=== PATIENT | female | born 1990 | race Two or more races ===

== ENCOUNTER 2023-11-26 17:29 | Emergency (ER) | payer MEDICAID, SELFPAY ==
[2023-11-26 18:09] VITALS: BP 120/79; PULSE 91; TEMP 36.3; O2SAT 99; BMI 28.3
[2023-11-26 18:56] LABS: Strep A DNA Probe* NOT DETECTED (Not Detectd)
--- NOTE | 2023-11-26 19:03 | ED_ITS ---
HPI - General Adult General Chief complaint: Nausea/Vomiting Stated complaint: weak, 7 weeks pre, vomiting Time Seen by Provider: 11/26/23 18:47 Source: patient Mode of arrival: ambulatory Limitations: no limitations History of Present Illness HPI narrative: 33-year-old female at 7 weeks gestation presents today with nausea vomiting. Patient states she has been having nausea vomiting on and off for over a week now but in the last 48 hours it has been significant and she has been able to keep anything down. She does have Zofran at home it does not seem to be working she has also tried vitamin B6 and Unisom which also is not working. She states that she had a fever today of 100.5. She denies headache, chest pain, cough, abdominal discomfort, vaginal bleeding, skin rashes. She denies any dysuria. She had 2 episodes of loose stools yesterday. No stool today. No sick contacts that she is aware of. Related Data Home Medications Medication Instructions Recorded Confirmed ondansetron 4 mg disintegrating 4 mg PO Q8H PRN nausea 11/26/23 11/26/23 tablet Previous Rx's Medication Instructions Recorded promethazine 25 mg tablet 25 mg PO TID PRN #10 tabs 11/26/23 Allergies Allergy/AdvReac Type Severity Reaction Status Date / Time No Known Drug Allergies Allergy Verified 11/26/23 18:13 Review of Systems Status of ROS: Reports: 10 or more systems reviewed and unremarkable except as noted in History and below [facility] Social History Smoking Status: Never smoker Non-prescribed substance use: denies use Exam Narrative: Exam Narrative: Well-nourished well-developed patient in no acute distress. Alert and oriented. Answers questions appropriately. Mood and affect are appropriate. Thoughts are goal oriented and rational. No tangential or magical thinking noted. Patient speaks in full sentences without needing to catch her breath. HEENT: Normocephalic atraumatic. Pupils are equally round reactive to light. Extraocular muscles are intact. Conjunctivae are moist without any icterus noted. Moist mucous membranes. Posterior pharynx is normal. Neck is soft without any lymphadenopathy or thyromegaly. No masses are appreciated. Cardiovascular: Heart is regular rate and rhythm S1 and S2 are present without any murmurs. Lungs: Clear to auscultation bilaterally no wheezes rhonchi or rales are appreciated. Patient takes deep breaths without any discomfort. Abdomen: Soft and nontender nondistended with normal bowel sounds. Extremities: Bilateral lower extremities are without edema. Skin: Well perfused without any obvious rashes. Const: Vital Signs, click to edit/add: Vital Signs - 24 hr 11/26/23 18:09 Temperature 97.4 F L Pulse Rate [Pulse Oximeter] 91 Blood Pressure [Ri ght Upper Arm] 120/79 Pulse Oximetry 99 Oxygen Delivery Me thod Room Air Course Course ED Course: IV was established and patient given a L of normal saline, IV Zofran. Triple swab was obtained - is negative. Rapid strep was negative. CBC is normal. Lactate is normal. Chemistries and LFTs are normal. Urine is concentrated with ketones and protein. No signs of infection. Patient did not have any vomiting episodes while she was here. Vital Signs Vital signs: Initial Vital Signs Temperature 97.4 F L 11/26/23 18:09 Temperature Source Temporal Artery Scan 11/26/23 18:09 Pulse Rate 91 11/26/23 18:09 Blood Pressure 120/79 11/26/23 18:09 Blood Pressure Mean 92 11/26/23 18:09 Blood Pressure Position Sitting 11/26/23 18:09 Pulse Oximetry 99 11/26/23 18:09 Oxygen Delivery Method Room Air 11/26/23 18:09 Vital Signs Temperature 97.4 F L 11/26/23 18:09 Pulse Rate 91 11/26/23 18:09 Blood Pressure 120/79 11/26/23 18:09 Pulse Oximetry 99 11/26/23 18:09 Oxygen Delivery Method Room Air 11/26/23 18:09 Temperature 97.4 F L 11/26/23 18:09 Pulse Rate 91 11/26/23 18:09 Blood Pressure 120/79 11/26/23 18:09 Pulse Oximetry 99 11/26/23 18:09 Oxygen Delivery Method Room Air 11/26/23 18:09 Medications Administered Medications: Discontinued Medications Generic Name Dose Route Start Last Admin Trade Name Freq PRN Reason Stop Dose Admin Sodium Chloride 1,000 mls @ 1,000 mls/hr 11/26/23 19:00 11/26/23 20:01 0.9 % Sodium Chloride 1000 Ml IV 11/26/23 19:59 Infused .Q1H HAY Infusion Ondansetron HCl 4 mg 11/26/23 18:57 11/26/23 19:28 Ondansetron 2 Mg/Ml Inj IVP 11/26/23 18:58 4 mg ONCE ONE Administration Medical Decision Making MDM Narrative Medical decision making narrative: Vomiting in . Will send the patient home with a few tablets of Phenergan this helps. Recommend following up with OBGYN. Fever unclear etiology. Patient remained afebrile while she was here. Lab Data Lab results reviewed: Yes I reviewed the patient's lab results Labs: Lab Results 11/26/23 11/26/23 11/26/23 Range/Units 18:17 19:15 19:15 WBC 7.72 (4.50-11.00) K/uL RBC 4.48 (4.00-5.20) m/uL Hgb 12.7 (12.0-16.0) gm/dL Hct 37.3 (33.0-51.0) % MCV 83 (80-100) fL MCH 28 (26-34) pg MCHC 34 (32-36) gm/dL RDW Coeff of Tacos 12.9 (11.5-15.5) % Plt Count 265 (140-440) K/uL Neut % (Auto) 71.4 (42.0-72.0) % Lymph % (Auto) 20.5 (20-44) % [place] % (Auto) 7.8 (0.0-11.0) % Eos % (Auto) 0.1 (0.0-7.0) % Baso % (Auto) 0.1 (0.0-3.0) % Neut # (Auto) 5.51 (1.7-7.0) K/uL Lymph # (Auto) 1.58 (0.90-2.90) K/uL [place] # (Auto) 0.60 (0.00-0.90) K/UL Eos # (Auto) 0.01 (0.00-0.50) K/uL Baso # (Auto) 0.01 (0.00-0.30) K/uL Abs Immat Gran (auto) 0.01 (0.00-0.30) K/uL Imm/Tot Granulo (auto) 0.1 % Sodium 137 (135-149) mmol/L Potassium 4.0 (3.6-5.1) mmol/L Chloride 103 (96-114) mmol/L Carbon Dioxide 21 (20-32) mmol/L Anion Gap 13 (7-15) mEq/L BUN 9 (5-24) mg/dL Creatinine 0.5 (0.5-1.5) mg/dL Estimated Creat Clear 144.00 Estimated GFR 127 ml/min Glucose 94 (60-115) mg/dL Lactate 1.2 (0.5-1.9) mmol/L Calcium 9.1 (8.4-10.6) mg/dL Total Bilirubin 0.8 Cancelled (0.1-1.5) mg/dL Direct Bilirubin 0.1 (0.0-0.5) mg/dL AST (12-35) U/L ALT (4-35) U/L Alkaline Phosphatase (40-150) U/L Total Protein (6.0-8.3) g/dL Albumin (3.3-5.0) g/dL Urine Color (Yellow) Urine Appearance (Clear) Urine pH (5.0-8.5) Ur Specific [place] (1.000-1.030) Urine Protein (Negative) Urine Glucose (UA) (Negative) Urine Ketones (Negative) Urine Blood (Negative) Urine Nitrite (Negative) Urine Bilirubin (Negative) Urine Urobilinogen (0.2-1.0) Ur Leukocyte Esterase (Negative) SARS-CoV-2 (PCR) Negative SARS-CoV-2 (Negative) Influenza Type A (PCR) Negative PCR FLU A (Negative) Influenza Type B (PCR) Negative PCR FLU B (Negative) RSV (PCR) Negative PCR RSV (Negative) Group A Strep DNA NOT DETECTED (Not Detectd) 11/26/23 11/26/23 11/26/23 Range/Units 19:15 19:15 19:15 WBC (4.50-11.00) K/uL RBC (4.00-5.20) m/uL Hgb (12.0-16.0) gm/dL Hct (33.0-51.0) % MCV (80-100) fL MCH (26-34) pg MCHC (32-36) gm/dL RDW Coeff of [place] (11.5-15.5) % Plt Count (140-440) K/uL Neut % (Auto) (42.0-72.0) % Lymph % (Auto) (20-44) % Troup % (Auto) (0.0-11.0) % Eos % (Auto) (0.0-7.0) % Baso % (Auto) (0.0-3.0) % Neut # (Auto) (1.7-7.0) K/uL Lymph # (Auto) (0.90-2.90) K/uL Troup # (Auto) (0.00-0.90) K/UL Eos # (Auto) (0.00-0.50) K/uL Baso # (Auto) (0.00-0.30) K/uL Abs Immat Gran (auto) (0.00-0.30) K/uL Imm/Tot Granulo (auto) % Sodium (135-149) mmol/L Potassium (3.6-5.1) mmol/L Chloride (96-114) mmol/L Carbon Dioxide (20-32) mmol/L Anion Gap (7-15) mEq/L BUN (5-24) mg/dL Creatinine (0.5-1.5) mg/dL Estimated Creat Clear Estimated GFR ml/min Glucose (60-115) mg/dL Lactate (0.5-1.9) mmol/L Calcium (8.4-10.6) mg/dL Total Bilirubin (0.1-1.5) mg/dL Direct Bilirubin Cancelled (0.0-0.5) mg/dL AST 18 Cancelled (12-35) U/L ALT 11 Cancelled (4-35) U/L Alkaline Phosphatase 80 (40-150) U/L Total Protein (6.0-8.3) g/dL Albumin (3.3-5.0) g/dL Urine Color (Yellow) Urine Appearance (Clear) Urine pH (5.0-8.5) Ur Specific [place] (1.000-1.030) Urine Protein (Negative) Urine Glucose (UA) (Negative) Urine Ketones (Negative) Urine Blood (Negative) Urine Nitrite (Negative) Urine Bilirubin (Negative) Urine Urobilinogen (0.2-1.0) Ur Leukocyte Esterase (Negative) SARS-CoV-2 (PCR) (Negative) Influenza Type A (PCR) (Negative) Influenza Type B (PCR) (Negative) RSV (PCR) (Negative) Group A Strep DNA (Not Detectd) 11/26/23 11/26/23 11/26/23 Range/Units 19:15 19:15 19:15 WBC (4.50-11.00) K/uL RBC (4.00-5.20) m/uL Hgb (12.0-16.0) gm/dL Hct (33.0-51.0) % MCV (80-100) fL MCH (26-34) pg MCHC (32-36) gm/dL RDW Coeff of Tacos (11.5-15.5) % Plt Count (140-440) K/uL Neut % (Auto) (42.0-72.0) % Lymph % (Auto) (20-44) % Troup % (Auto) (0.0-11.0) % Eos % (Auto) (0.0-7.0) % Baso % (Auto) (0.0-3.0) % Neut # (Auto) (1.7-7.0) K/uL Lymph # (Auto) (0.90-2.90) K/uL Troup # (Auto) (0.00-0.90) K/UL Eos # (Auto) (0.00-0.50) K/uL Baso # (Auto) (0.00-0.30) K/uL Abs Immat Gran (auto) (0.00-0.30) K/uL Imm/Tot Granulo (auto) % Sodium (135-149) mmol/L Potassium (3.6-5.1) mmol/L Chloride (96-114) mmol/L Carbon Dioxide (20-32) mmol/L Anion Gap (7-15) mEq/L BUN (5-24) mg/dL Creatinine (0.5-1.5) mg/dL Estimated Creat Clear Estimated GFR ml/min Glucose (60-115) mg/dL Lactate (0.5-1.9) mmol/L Calcium (8.4-10.6) mg/dL Total Bilirubin (0.1-1.5) mg/dL Direct Bilirubin (0.0-0.5) mg/dL AST (12-35) U/L ALT (4-35) U/L Alkaline Phosphatase Cancelled (40-150) U/L Total Protein 8.3 Cancelled (6.0-8.3) g/dL Albumin 4.5 Cancelled (3.3-5.0) g/dL Urine Color (Yellow) Urine Appearance (Clear) Urine pH (5.0-8.5) Ur Specific [place] (1.000-1.030) Urine Protein (Negative) Urine Glucose (UA) (Negative) Urine Ketones (Negative) Urine Blood (Negative) Urine Nitrite (Negative) Urine Bilirubin (Negative) Urine Urobilinogen (0.2-1.0) Ur Leukocyte Esterase (Negative) SARS-CoV-2 (PCR) (Negative) Influenza Type A (PCR) (Negative) Influenza Type B (PCR) (Negative) RSV (PCR) (Negative) Group A Strep DNA (Not Detectd) 11/26/23 Range/Units 20:00 WBC (4.50-11.00) K/uL RBC (4.00-5.20) m/uL Hgb (12.0-16.0) gm/dL Hct (33.0-51.0) % MCV (80-100) fL MCH (26-34) pg MCHC (32-36) gm/dL RDW Coeff of Tacos (11.5-15.5) % Plt Count (140-440) K/uL Neut % (Auto) (42.0-72.0) % Lymph % (Auto) (20-44) % [place]oup % (Auto) (0.0-11.0) % Eos % (Auto) (0.0-7.0) % Baso % (Auto) (0.0-3.0) % Neut # (Auto) (1.7-7.0) K/uL Lymph # (Auto) (0.90-2.90) K/uL [place]oup # (Auto) (0.00-0.90) K/UL Eos # (Auto) (0.00-0.50) K/uL Baso # (Auto) (0.00-0.30) K/uL Abs Immat Gran (auto) (0.00-0.30) K/uL Imm/Tot Granulo (auto) % Sodium (135-149) mmol/L Potassium (3.6-5.1) mmol/L Chloride (96-114) mmol/L Carbon Dioxide (20-32) mmol/L Anion Gap (7-15) mEq/L BUN (5-24) mg/dL Creatinine (0.5-1.5) mg/dL Estimated Creat Clear Estimated GFR ml/min Glucose (60-115) mg/dL Lactate (0.5-1.9) mmol/L Calcium (8.4-10.6) mg/dL Total Bilirubin (0.1-1.5) mg/dL Direct Bilirubin (0.0-0.5) mg/dL AST (12-35) U/L ALT (4-35) U/L Alkaline Phosphatase (40-150) U/L Total Protein (6.0-8.3) g/dL Albumin (3.3-5.0) g/dL Urine Color Dark yellow (Yellow) Urine Appearance Cloudy A (Clear) Urine pH 7.0 (5.0-8.5) Ur Specific [place] >= 1.030 (1.000-1.030) Urine Protein 1+ A (Negative) Urine Glucose (UA) Negative (Negative) Urine Ketones 4+ A (Negative) Urine Blood Negative (Negative) Urine Nitrite Negative (Negative) Urine Bilirubin 1+ A (Negative) Urine Urobilinogen 4.0 A (0.2-1.0) Ur Leukocyte Esterase Negative (Negative) SARS-CoV-2 (PCR) (Negative) Influenza Type A (PCR) (Negative) Influenza Type B (PCR) (Negative) RSV (PCR) (Negative) Group A Strep DNA (Not Detectd) Discharge Plan Discharge Clinical Impression: Vomiting affecting Patient Disposition: Home, Self-Care Condition: Stable Instructions: Acute Nausea and Vomiting (ED) Additional Instructions: Try to stay well hydrated by taking small sips of water very frequently throughout the day. Follow-up with OBGYN as scheduled. Prescriptions: New promethazine 25 mg tablet 25 mg PO TID PRNQty: 10 0RF Rx Instructions: Can take half to 1 tab as needed 3 times daily No Action ondansetron 4 mg tablet,disintegrating 4 mg PO Q8H PRN (Reason: nausea) Follow Up/Referrals: Provider,Not a Local [Primary Care Provider] - Stand Alone Forms: [employer] Info Instructions
[2023-11-26 19:09] LABS: PCR FLU A Negative PCR FLU A (Negative); PCR FLU B Negative PCR FLU B (Negative); PCR RSV Negative PCR RSV (Negative); SARS PCR* Negative SARS-CoV-2 (Negative)
[2023-11-26 19:21] LABS: Lactate* 1.2 mmol/L (0.5-1.9)
[2023-11-26 19:26] LABS: Basophils Absolute Auto 0.01 K/uL (0.00-0.30); Basophils Percent Auto 0.1 % (0.0-3.0); Eosinophils Absolute Auto 0.01 K/uL (0.00-0.50); Eosinophils Percent Auto 0.1 % (0.0-7.0); Hematocrit 37.3 % (33.0-51.0); Hemoglobin* 12.7 gm/dL (12.0-16.0); Immature Granulocytes Abs Auto 0.01 K/uL (0.00-0.30); Immature Granulocytes Pct Auto 0.1 %; Lymphocytes Absolute Auto 1.58 K/uL (0.90-2.90); Lymphocytes Percent Auto 20.5 % (20-44); Mean Corpuscular HGB Conc 34 gm/dL (32-36); Mean Corpuscular Hemoglobin 28 pg (26-34); Mean Corpuscular Volume 83 fL (80-100); Monocytes Percent Auto 7.8 % (0.0-11.0); Neutrophils Absolute Auto 5.51 K/uL (1.7-7.0); Neutrophils Percent Auto 71.4 % (42.0-72.0); Platelet Count* 265 K/uL (140-440); RDW Coefficient of Variation % 12.9 % (11.5-15.5); Red Blood Count 4.48 m/uL (4.00-5.20); White Blood Count* 7.72 K/uL (4.50-11.00)
[2023-11-26 19:27] LABS: Slide Review Reflex No
[2023-11-26] MEDS: ONDANSETRON 2 MG/ML inj 4 MG IVP (19:28)
[2023-11-26] MEDS: 0.9 % SODIUM CHLORIDE 1000 ml 1,000 ML IV (19:28)
[2023-11-26 19:42] LABS: Albumin* 4.5 g/dL (3.3-5.0)
[2023-11-26 19:43] LABS: Chloride* 103 mmol/L (96-114); Sodium* 137 mmol/L (135-149)
[2023-11-26 19:45] LABS: Anion Gap 13 mEq/L (7-15); Aspartate Amino Transferase* 18 U/L (12-35); Bilirubin Direct* 0.1 mg/dL (0.0-0.5); Bilirubin Total* 0.8 mg/dL (0.1-1.5); Blood Urea Nitrogen* 9 mg/dL (5-24); Carbon Dioxide* 21 mmol/L (20-32); Creatinine* 0.5 mg/dL (0.5-1.5); Estimated Glomerular Filt Rate 127 ml/min; Total Protein* 8.3 g/dL (6.0-8.3)
[2023-11-26 19:46] LABS: Alanine Aminotransferase* 11 U/L (4-35); Alkaline Phosphatase* 80 U/L (40-150); Calcium* 9.1 mg/dL (8.4-10.6); Glucose* 94 mg/dL (60-115)
[2023-11-26 20:10] LABS: Appearance Urine Cloudy (Clear); Bilirubin Urine 1+ (Negative); Blood Urine Negative (Negative); Glucose Urine Negative (Negative); Ketones Urine 4+ (Negative); Leukocyte Esterase Urine Negative (Negative); Nitrite Urine Negative (Negative); Protein Urine 1+ (Negative); Specific Gravity Urine >= 1.030 (1.000-1.030)
[2023-11-26 20:39] LABS: Color Urine Dark yellow (Yellow)
[2023-11-26 20:43] LABS: RBC Urine 0-2 (0-2); WBC Urine 0-2 (0-5)
[2023-11-26 20:44] LABS: Amorphous Sediment Urine Moderate; Bacteria Urine Moderate; Mucus Urine Few; Squamous Epithelial Cell Urine Many (None-Few)
== END 2023-11-26 20:10 | disposition home or self-care (01) ==
PROVIDERS: Emergency Provider Family Medicine
DX: R11.2 Nausea with vomiting, unspecified (principal); Z3A.01 Less than 8 weeks gestation of pregnancy
CPT/HCPCS: 36415; 80048; 80076; 81001; 83605; 85025; 87086; 87631; 87651; 96374; 99283; 99284; J2405; J7030

== ENCOUNTER 2023-12-08 11:49 | Outpatient (CLI) | payer MEDICAID, SELFPAY | END 2023-12-08 11:50 | disposition home or self-care (01) | PROVIDERS: Visit Provider Registered Nurse | DX: O20.9 Hemorrhage in early pregnancy, unspecified (principal) | CPT/HCPCS: 84702; 86900; 86901 ==

== ENCOUNTER 2023-12-14 12:17 | Outpatient (CLI) | payer MEDICAID, SELFPAY ==
[2023-12-14 22:27] LABS: Chlamydia DNA Amplified* NOT DETECTED (No Detected); GC DNA Amplified* NOT DETECTED (No Detected)
== END 2023-12-14 12:18 | disposition home or self-care (01) ==
PROVIDERS: Visit Provider Physician Assistant
DX: Z34.91 Encounter for supervision of normal pregnancy, unspecified, first trimester (principal); Z3A.10 10 weeks gestation of pregnancy
CPT/HCPCS: 87491; 87591

== ENCOUNTER 2023-12-15 12:06 | Outpatient (CLI) | payer MEDICAID, SELFPAY | END 2023-12-15 12:07 | disposition home or self-care (01) | LOC: NFLDREF 12-17 07:01 | PROVIDERS: Visit Provider Physician Assistant | DX: O26.851 Spotting complicating pregnancy, first trimester (principal); O21.0 Mild hyperemesis gravidarum; Z3A.10 10 weeks gestation of pregnancy | CPT/HCPCS: 80053; 84439; 84443; 86592; 86703; 86704; 86706; 86762; 86787; 86803; 86850; 86900; 86901; 87086; 87340 ==

== ENCOUNTER 2023-12-30 11:48 | Outpatient (CLI) | payer MEDICAID, SELFPAY | END 2023-12-30 11:49 | disposition home or self-care (01) | PROVIDERS: Visit Provider Obstetrics & Gynecology | DX: E05.90 Thyrotoxicosis, unspecified without thyrotoxic crisis or storm (principal) | CPT/HCPCS: 84439; 84443 ==

== ENCOUNTER 2024-03-01 12:09 | Outpatient (CLI) | payer MEDICAID, SELFPAY ==
--- NOTE | 2024-03-01 12:15 | CRLHL7_ITS ---
For Patients: As a result of the Century Cures Act, medical imaging exams and procedure reports are released immediately into your electronic medical record. You may view this report before your referring provider. If you have questions, please contact your health care provider. INDICATION: Evaluate anatomy. COMPARISON: 12/08/2023 TECHNIQUE: Real time forte scale imaging of the fetus was performed as well as color Doppler analysis of the umbilical vessels. FINDINGS: Sonographic imaging demonstrates a single living intrauterine gestation. Fetus demonstrates a regular cardiac rate of 142 beats per minute. Fetus has a vertex position. The placenta lies posteriorly without evidence of placenta previa. The placenta is heterogeneous. Edge of the placenta located 3.4 cm from the internal cervical os. Amniotic fluid volume appears normal. Single deepest vertical pocket: 3.4 cm. The cervix is closed and measures 3.7 cm in length. The composite ultrasound gestational age is calculated at 20 weeks 0 days with an estimated sonographic due date of 07/19/2024. The estimated weight is 313 grams which lies at the 5th %. The following biometric measurements were obtained: Biparietal diameter: 4.3 cm/19 weeks 0 days less than 3rd% Head circumference: 17.6 cm/20 weeks 1 day 10th% Abdominal circumference: 14.1 cm/19 weeks 3 days 7th% Femur length: 3.2 cm/20 weeks 1 day 15th% The HC/AC ratio measures: 1.25 range (1.08-1.25) On anatomic survey, there is a normal appearance of the cerebral ventricles, cavum septi pellucidi, cisterna magna and cerebellum. The nose, lips, and facial profile appear normal. The cervical, thoracic and lumbar spine are well visualized and appear normal. There is a normal four-chamber heart view and the left and right ventricular outflow tracts appear normal. The diaphragm and stomach appear normal. The kidneys and bladder also appear normal. There is a normal three-vessel cord and cord insertion site. The four extremities appear normal. IMPRESSION: Sonographic gestational age 20 weeks 0 days and sonographic due date of 07/19/2024. Sonographic age 1 week behind the clinical age. Estimated weight 5th percentile. Abdominal circumference 7th percentile. BPD less than 3rd percentile. Placenta is heterogeneous. Follow-up in the early 3rd trimester recommended. No intrinsic abnormalities noted on anatomic survey. Dictated by Fletcher Moon MD @ 03/02/2024 10:59:33 AM (Electronically Signed)
== END 2024-03-01 12:10 | disposition home or self-care (01) ==
LOC: US 12:09
PROVIDERS: Visit Provider Physician Assistant
DX: Z34.92 Encounter for supervision of normal pregnancy, unspecified, second trimester (principal); Z3A.20 20 weeks gestation of pregnancy
CPT/HCPCS: 76805

== ENCOUNTER 2024-03-23 10:18 | Outpatient (CLI) | payer MEDICAID, SELFPAY ==
--- NOTE | 2024-03-23 10:15 | CRLHL7_ITS ---
For Patients: As a result of the Century Cures Act, medical imaging exams and procedure reports are released immediately into your electronic medical record. You may view this report before your referring provider. If you have questions, please contact your health care provider. INDICATION: IUGR. COMPARISON: OB ultrasound 03/01/2024. TECHNIQUE: Ultrasound OB pelvis biophysical profile. Real time forte scale imaging of the fetus was performed without non-stress testing. FINDINGS: Sonographic imaging demonstrates a single living intrauterine gestation. The fetus demonstrates a regular cardiac rate of 135 beats per minute. The fetus has a cephalic orientation. The placenta lies posteriorly. The cervix measures 3.2 cm in length. Umbilical artery S/D ratio measures 3.0 Single deepest pocket measures 4.3 cm (2/2). The fetus was active (2/2). There was normal flexion and extension of the trunk and extremities (2/2). The fetus demonstrated normal breathing movements (2/2). IMPRESSION: Normal biophysical profile score 8 out of 8. Dictated by Yuki Caal MD @ 03/24/2024 3:08:38 AM (Electronically Signed)
== END 2024-03-23 10:19 | disposition home or self-care (01) ==
LOC: US 10:18
PROVIDERS: PCP Family Medicine; Visit Provider Obstetrics & Gynecology
DX: O36.5990 Maternal care for other known or suspected poor fetal growth, unspecified trimester, not applicable or unspecified (principal)
CPT/HCPCS: 76819; 76820

== ENCOUNTER 2024-03-31 16:16 | Outpatient (CLI) | payer MEDICAID, SELFPAY ==
[2024-03-31 16:45] VITALS: BP 115/71; PULSE 87; RESP 16; TEMP 36.6
--- NOTE | 2024-03-31 16:58 | CRLHL7_ITS ---
For Patients: As a result of the Century Cures Act, medical imaging exams and procedure reports are released immediately into your electronic medical record. You may view this report before your referring provider. If you have questions, please contact your health care provider. INDICATION: Possible rupture of membranes. COMPARISON: OB ultrasound 03/23/2024. TECHNIQUE: Real time forte scale imaging of the fetus was performed as well as color Doppler analysis of the umbilical vessels. FINDINGS: Sonographic imaging demonstrates a single living intrauterine gestation. The fetus has a regular cardiac rate of 141 beats per minute. The fetus has a cephalic orientation. The placenta lies posteriorly without evidence of placenta previa. Amniotic fluid volume appears normal with JESSICA measuring 13.8 cm. The cervix is closed and measures 4.1 cm in length. Umbilical artery S/D ratio measures 2.8. The composite ultrasound gestational age is calculated at 24 weeks 1 day with an estimated sonographic due date of 07/20/2024. The estimated weight is 657 grams which lies at the 6th percentile. The following biometric measurements were obtained: Biparietal diameter: 5.71 cm (23 weeks 3 days) (less than 3rd percentile) Head circumference: 22.76 cm (24 weeks 6 days) (14th percentile) Abdominal circumference: 18.59 cm (23 weeks 3 days) (3rd percentile) Femur length: 4.49 cm (24 weeks 6 days) (23rd percentile) The HC/AC ratio measures: 1.22 (range 1.04-1.22) BIOPHYSICAL PROFILE: Single deepest pocket measures 4.3 cm (2/2). The fetus was active (2/2). There was normal flexion and extension of the trunk and extremities (2/2). The fetus did not demonstrate at least 30 seconds of continuous breathing movements (0/2). IMPRESSION: 1. Single living intrauterine gestation in cephalic position with heart rate 141 beats per minute. 2. Ultrasound gestational age 24 weeks 1 day with sonographic due date 07/20/2024. The clinical gestational age is 25 weeks 2 days. 3. Estimated weight is 6th percentile. 4. JESSICA is within normal limits measuring 13.8 cm. 5. The cervix is closed and measures 4.1 cm in length. 6. Biophysical profile score 6 out of 8. Dictated by Yuki Caal MD @ 03/31/2024 6:39:38 PM (Electronically Signed)
[2024-03-31 17:04] LABS: Amnisure Rom* Negative
[2024-03-31 17:15] LABS: Clue Cells No Clue Cells Seen (None Seen); Trichomonas No Trichomonas Seen (None Seen); Yeast No Yeast Seen (None Seen)
[2024-03-31 17:40] LABS: Fetal Fibronectin* Negative (Negative)
[2024-03-31 18:20] LABS: Appearance Urine Clear (Clear); Bilirubin Urine Negative (Negative); Blood Urine Negative (Negative); Color Urine Yellow (Yellow); Glucose Urine Negative (Negative); Ketones Urine Negative (Negative); Leukocyte Esterase Urine Negative (Negative); Nitrite Urine Negative (Negative); Protein Urine Negative (Negative); Urobilinogen Urine 0.2 (0.2-1.0)
--- NOTE | 2024-03-31 18:58 | W.PM.OBO ---
OB Outpatient HPI History of Present Illness Date Seen: 03/31/24 History of Present Illness: 33 year old at 25 2/7 weeks gestation by LMP, SHAYNA 07/12/24, presents with concerns for watery like discharge today. Patient states that since this morning se has felt little gushes of a watery like discharge. Denies dysuria, urgency or frequency, denies frequent abdominal tightening, malodorous vaginal discharge, no bleeding, no constipation or diarrhea. Baby moving naturally: Yes Bleeding: No Contractions: No Leaking fluid: Yes Discharge: Yes Heartburn: No Back pain: No Meds Home Medications and Allergies Home Medications ?Medication ?Instructions ?Recorded ?Confirmed ?Type docosahexaenoic acid 200 mg mg PO 02/11/24 03/23/24 History capsule ( DHA) Allergies Allergy/AdvReac Type Severity Reaction Status Date / Time No Known Drug Allergies Allergy Verified 03/23/24 09:50 [facility] Surgical History (Updated 12/10/23 @ 09:59 by Geraldine Han PA-C) History of ?Z98.891 - History of uterine scar from previous surgery (ICD-10) Social History (Updated 12/16/23 @ 13:13 by Geraldine Han PA-C) Narrative: 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 Marital status: . Yazidism/cultural needs: no. Chemical or radiation exposure: no. Pre- tobacco use: no. Pre- alcohol use: no. Current tobacco use: no. Current alcohol use: no. Recreational drug use: no. Dietary restrictions: No poor. Blood transfusion acceptable in an emergency: yes. PSYCHOSOCIAL HISTORY: History of depression or currently depressed: no. Current or past physical, emotional, or sexual mistreatment: no. Problems that will make it hard to make it to appointments: no. What is your current living situation?: I presently have a place to live Problems where you live: no known problems In the past 12 months, utilities in danger of being shut off: no In past 12 months, lack of transportation kept you from medical appts, meetings, work, or getting things needed for daily living: no In the past 12 mos, have been you worried that your food would run out before you had money to buy more?: never true In the past 12 mos, the food you bought just didn't last and you didn't have money to buy more?: never true Smoking Status: Never smoker Non-prescribed substance use: denies use How often does anyone, including family, friends and others, physically hurt you: never How often does anyone, including family, friends and others, insult or talk down to you: never How often does anyone, including family, friends and others, threaten you with harm: never How often does anyone, including family, friends and others, scream or curse at you: never Little interest or pleasure in doing things: not at all Feeling down, depressed, or hopeless: not at all History History 3 Elective abortions 0 Para 2 Spontaneous abortions 0 Hx # Term Pregnancies 2 Ectopic pregnancies 0 Hx # Pregnancies 0 Multiple births 0 Number of Living Children 0 Past Pregnancies Del. 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 GENERAL APPEARANCE: Alert, cooperative female in no acute distress. MOOD & AFFECT: Normal. ABDOMEN: Gravid, nontender. : Sterile speculum exam: no pooling, no Valsalva, there was a moderate amount of a clear more runny discharge, but it did not pool or repeated with Valsalva. This clear morerunny discharge was collected for ferning. Ferning was negative! EXTREMITIES: Nonedematous. Well perfused. Nontender. Labs Labs Laboratory Tests 03/31/24 03/31/24 Range/Units 16:50 16:00 Urine Color Yellow (Yellow) Urine Appearance Clear (Clear) Urine pH 7.0 (5.0-8.5) Ur Specific [place] 1.010 (1.000-1.030) Urine Protein Negative (Negative) Urine Glucose (UA) Negative (Negative) Urine Ketones Negative (Negative) Urine Blood Negative (Negative) Urine Nitrite Negative (Negative) Urine Bilirubin Negative (Negative) Urine Urobilinogen 0.2 (0.2-1.0) Ur Leukocyte Esterase Negative (Negative) Membrane Rupture Negative Vaginal Trichomonas No Trichomonas Seen (None Seen) Vaginal Yeast No Yeast Seen (None Seen) Vaginal Clue Cells No Clue Cells Seen (None Seen) Fibronectin Negative (Negative) Assessment and Plan Assessment and plan (1) affected by growth restriction: Status: Acute Plan Patient evaluated due to concerns of PPROM. AmniSure negative, wet prep negative, UA negative for infection, OB ultrasound completed and and JESSICA: 13 cm, cervical length: 4.1 cm. EFW consistent with known IUGR. Normal Dopplers. BPP 6/8, -2 for breathing expected for 25 weeker. NST completed and found appropriate for gestational age. No evidence of uterine contractions. Findings reassuring. We have been able to rule out premature rupture of membranes at this time. Reassurance given to patient. Encouraged to contact labor and delivery our clinic if there are any new symptoms of concern. Patient and in agreement with plan.
--- NOTE | 2024-03-31 19:37 | PC.OBNST ---
NST Note NST Note Start: 03/31/24 16:22 Freq: ONCE Status: Active Protocol: Document 03/31/24 19:36 ABP (Rec: 03/31/24 19:36 ABP [id number]) NST Note 3 Para (# of births) 2 EDC 07/12/24 Gestational Age In Weeks & Days 25 Weeks & 2 Days Patient Presented with Complaint(s) of Leaking fluid Appropriate for Gestational Age Yes RN Remedios Singh, RN Date 03/31/24 Appropriate for Gestational Age Yes BIN Avila, BIN Date 03/31/24 OB NST charge Yes Complete NST Note via Write Note Yes The provider's electronic signature indicates the NST is reactive/appropriate for gestational age. *Note to provider: If an addendum is required, open the patient's chart and click on the note under the Nurse/Allied Health tab.
== END 2024-03-31 19:00 | disposition home or self-care (01) ==
LOC: OB OUT 16:17 → OB 16:19
PROVIDERS: PCP Family Medicine; Visit Provider Obstetrics & Gynecology
DX: O47.02 False labor before 37 completed weeks of gestation, second trimester (principal); Z3A.25 25 weeks gestation of pregnancy
CPT/HCPCS: 59025; 76816; 76819; 76820; 81003; 84112; 87210; G0463

== ENCOUNTER 2024-04-19 09:13 | Outpatient (CLI) | payer MEDICAID, SELFPAY ==
--- NOTE | 2024-04-19 09:15 | CRLHL7_ITS ---
For Patients: As a result of the Cures Act, medical imaging exams and procedure reports are released immediately into your electronic medical record. You may view this report before your referring provider. If you have questions, please contact your health care provider. INDICATION: IUGR TECHNIQUE: Real time forte scale imaging of the fetus was performed as well as color Doppler and spectral Doppler analysis of the umbilical artery. COMPARISON: 03/31/2024 FINDINGS: Sonographic imaging demonstrates a single living intrauterine gestation. Fetus demonstrates a regular cardiac rate of 138 beats per minute. Fetus has a vertex position. The placenta lies posterior. Amniotic fluid volume appears normal and there is a single deepest pocket of 4.6 cm. The estimated weight is 913gm which lies at the less than 3rd %. On the prior OB ultrasound dated 03/31/2024 the estimated weight was at the 6th percentile. There is adequate diastolic blood flow within the umbilical artery. The S/D ratio measures 3.3. BPD less than 3rd percentile. HC 4th percentile. AC less than 3rd percentile. FL 10th percentile. The fetus was active and demonstrated normal breathing movements. There was normal flexion and extension of the trunk and extremities. IMPRESSION: Normal biophysical profile score 8/8. Sonographic gestational age 26 weeks 1 day and sonographic due date of 07/25/2024. Sonographic age 13 days behind the clinical age. Estimated weight less than 3rd percentile. Abdominal circumference less than 3rd percentile. Dictated by Fletcher Moon MD @ 04/20/2024 8:59:26 AM (Electronically Signed)
== END 2024-04-19 09:14 | disposition home or self-care (01) ==
LOC: US 09:13
PROVIDERS: PCP Family Medicine; Visit Provider Obstetrics & Gynecology
DX: O36.5920 Maternal care for other known or suspected poor fetal growth, second trimester, not applicable or unspecified (principal); Z3A.26 26 weeks gestation of pregnancy
CPT/HCPCS: 76816; 76819; 76820; 82728

== ENCOUNTER 2024-04-19 13:49 | Outpatient (CLI) | payer MEDICAID, SELFPAY | END 2024-04-19 13:50 | disposition home or self-care (01) | LOC: NFLDREF 13:51 | PROVIDERS: PCP Family Medicine; Visit Provider Obstetrics & Gynecology | DX: D50.9 Iron deficiency anemia, unspecified (principal) | CPT/HCPCS: 82728; 86592 ==

== ENCOUNTER 2024-05-02 13:39 | Outpatient (RCR) | payer MEDICAID, SELFPAY ==
--- NOTE | 2024-04-21 11:51 | PC.NURSE ---
Diagnosis: Iron Deficiency Anemia in
--- NOTE | 2024-04-21 13:25 | URNOTE ---
Prior auth is not required for Salvadorportia (Q0138) per [facility] Injectable Drug list.
[2024-05-02 14:10] VITALS: BP 108/72; PULSE 102; RESP 15; TEMP 36.1; O2SAT 97
[2024-05-02] MEDS: ferumoxytoL 1,020 MG in 0.9 % SODIUM CHLORIDE 250 ml 250 ML 568 MG IVPB (14:27)
[2024-05-02] MEDS: SODIUM CHLORIDE 0.9 % (FLUSH) 10 ML SYRINGE IVF (14:34)
[2024-05-02] MEDS: 0.9 % SODIUM CHLORIDE 250 ml IV (14:34)
[2024-05-02 15:30] VITALS: BP 110/70; PULSE 99; RESP 14; TEMP 36.1; O2SAT 97
== END 2024-10-29 23:59 | disposition home or self-care (01) ==
LOC: CCIC 13:39
PROVIDERS: PCP Family Medicine; Referring Provider Family Medicine; Visit Provider Clinical Nurse Specialist
DX: O99.019 Anemia complicating pregnancy, unspecified trimester (principal); D50.9 Iron deficiency anemia, unspecified
CPT/HCPCS: 96365; J7050; Q0138

== ENCOUNTER 2024-05-09 09:40 | Outpatient (CLI) | payer MEDICAID, SELFPAY ==
--- NOTE | 2024-05-09 09:45 | CRLHL7_ITS ---
For Patients: As a result of the Century Cures Act, medical imaging exams and procedure reports are released immediately into your electronic medical record. You may view this report before your referring provider. If you have questions, please contact your health care provider. INDICATION: IUGR TECHNIQUE: Real time forte scale imaging of the fetus was performed as well as color Doppler and spectral Doppler analysis of the umbilical artery. COMPARISON: 04/19/2024 FINDINGS: Sonographic imaging demonstrates a single living intrauterine gestation. Fetus demonstrates a regular cardiac rate of 139 beats per minute. Fetus has a vertex position. The placenta lies posteriorly. Amniotic fluid volume appears normal and there is a single deepest pocket of 4.9 cm. The estimated weight is 1261gm which lies at the less than 3rd %. On the prior OB ultrasound dated 04/19/2024 the estimated weight was at the less than 3rd percentile. There is adequate diastolic blood flow within the umbilical artery. The S/D ratio measures 3.9. BPD, HC, AC less than 3rd percentile. FL 4th percentile. The fetus was active and demonstrated normal breathing movements. There was normal flexion and extension of the trunk and extremities. IMPRESSION: Normal biophysical profile score 8/8. Sonographic gestational age 28 weeks 6 days and sonographic due date of 07/26/2024. Sonographic age 2 weeks behind the clinical age. Estimated weight less than 3rd percentile. Abdominal circumference, head circumference, BPD less than 3rd percentile. FL 4th percentile. Dictated by Fletcher Moon MD @ 05/09/2024 11:56:04 AM (Electronically Signed)
== END 2024-05-09 09:41 | disposition home or self-care (01) ==
LOC: US 09:40
PROVIDERS: PCP Family Medicine; Visit Provider Obstetrics & Gynecology
DX: O36.5930 Maternal care for other known or suspected poor fetal growth, third trimester, not applicable or unspecified (principal); Z3A.28 28 weeks gestation of pregnancy
CPT/HCPCS: 76816; 76819; 76820

== ENCOUNTER 2024-05-24 09:25 | Outpatient (CLI) | payer MEDICAID, SELFPAY | END 2024-05-24 09:26 | disposition home or self-care (01) | LOC: US 09:26 | PROVIDERS: PCP Family Medicine; Visit Provider Obstetrics & Gynecology | DX: O36.5930 Maternal care for other known or suspected poor fetal growth, third trimester, not applicable or unspecified (principal); Z3A.33 33 weeks gestation of pregnancy | CPT/HCPCS: 76816; 76819; 76820 ==

== ENCOUNTER 2024-06-01 12:54 | Outpatient (CLI) | payer MEDICAID, SELFPAY ==
--- NOTE | 2024-06-01 13:00 | CRLHL7_ITS ---
For Patients: As a result of the Century Cures Act, medical imaging exams and procedure reports are released immediately into your electronic medical record. You may view this report before your referring provider. If you have questions, please contact your health care provider. INDICATION: IUGR COMPARISON: 05/24/2024 TECHNIQUE: Real time forte scale imaging of the fetus was performed as well as color Doppler and spectral Doppler analysis of the umbilical artery. Without non-stress testing. FINDINGS: Sonographic imaging demonstrates a single living intrauterine gestation. Fetus demonstrates a regular cardiac rate of 139 beats per minute. Fetus has a vertex position. The umbilical artery demonstrates adequate diastolic blood flow. The S/D ratio measures 2.5. The amniotic fluid volume appears normal and there is a single deepest pocket measurement of 5.9 cm. The fetus was active and demonstrated normal breathing movements. There was normal flexion and extension of the trunk and extremities. IMPRESSION: Normal biophysical profile score of 8 out of 8. Dictated by Fletcher Moon MD @ 06/01/2024 2:51:27 PM (Electronically Signed)
== END 2024-06-01 12:55 | disposition home or self-care (01) ==
LOC: US 12:54
PROVIDERS: PCP Family Medicine; Visit Provider Obstetrics & Gynecology
DX: O36.5990 Maternal care for other known or suspected poor fetal growth, unspecified trimester, not applicable or unspecified (principal)
CPT/HCPCS: 76819; 76820; 82728

== ENCOUNTER 2024-06-15 13:35 | Outpatient (CLI) | payer MEDICAID, SELFPAY | END 2024-06-15 13:36 | disposition home or self-care (01) | LOC: NFLDREF 06-18 02:23 | PROVIDERS: PCP Family Medicine; Referring Provider Family Medicine; Visit Provider Obstetrics & Gynecology | DX: O36.5930 Maternal care for other known or suspected poor fetal growth, third trimester, not applicable or unspecified (principal); Z3A.33 33 weeks gestation of pregnancy | CPT/HCPCS: 76816; 76819; 76820; 87081; 87653 ==

== ENCOUNTER 2024-06-21 06:07 | Inpatient (IN) | payer MEDICAID, SELFPAY ==
[2024-06-21] VITALS (31 sets, daily range): BP systolic 105–131; BP diastolic 59–86; PULSE 68–118; RESP 15–18; TEMP 36.4–37.1; O2SAT 95–99; BMI 30.6
[2024-06-21] MEDS: LACTATED RINGERS 1000 ML 1,000 ML 125 ML IV ×2 (06:30→08:07)
[2024-06-21 06:42] LABS: Hemoglobin* 10.8 gm/dL (12.0-16.0)
--- NOTE | 2024-06-21 07:26 | W.PM.H&PU ---
History & Physical Update History & Physical Update H&P Reviewed and patient assessed: No changes noted
[2024-06-21] MEDS: CEFAZOLIN 2 GM INJ IVP (07:46)
[2024-06-21] MEDS: KETOROLAC 30 MG/ML inj IVP ×2 (08:59→15:26)
--- NOTE | 2024-06-21 09:00 | PM.OBPRCCS ---
Procedure Date of procedure: 06/21/24 Pre-op diagnosis: 37 weeks gestation. Severe IUGR. History of prior c-sections x2. Post-op diagnosis: same Procedure Done: Global [facility] bill your pro fee for this procedure?: Yes Blood Loss Measurement Type: QBL (252 mL) Bakri Used: No IV fluids (mL): 2,100 Urine Output (mL): 100 Surgeon: Madiha Umanzor MD Girls Tennis Coach: SORAYA Akers Anesthesia Type: Spinal and TAP Block Findings: Significant adhesions involving fascia, rectus muscles, peritoneum and omentum, as well as between lower uterine segment and bladder. Liveborn female , cephalic presentation, Apgars 5, 8 and 8 at 1, 5 and 10 minutes respectively. Weight 5 pounds. Normal uterus, tubes and ovaries. Procedure Name: Repeat low transverse section. Lysis of adhesions. Procedure Description: After obtaining informed consent, the patient was taken to the operating room where spinal anesthesia was obtained and found to be adequate. She was prepared and draped in the normal sterile fashion in the dorsal supine position with a leftward tilt. A Pfannenstiel skin incision was made with a scalpel in an elliptical fashion surrounding the line of the patient's previous Pfannenstiel scar, which was excised and discarded. The incision was carried down to the underlying layer of fascia with the Bovie. The fascia was incised in the midline and the incision extended laterally. The superior and inferior aspects of the fascial incision were grasped with Radha clamps, elevated and the underlying rectus muscles dissected off sharply and with electrocautery. This dissection took an increased amount of time given the dense adhesions. During the adhesiolysis, the peritoneum was entered, which aided in the dissection. The omentum was found to be adherent to the peritoneum to the left of the opening. The adhesions were isolated with [place] clamps, transected, and suture ligated with two 0 Vicryl in two places to free up the omentum which was then pushed cephalad. The rectus muscles were then in the midline. The adhesions between the bladder and lower uterine segment were taken down sharply with Metzenbaum scissors. The Derik O retractor was then placed into the incision. The lower uterine segment was then incised in a transverse fashion with the scalpel. Upon entry into the uterus, membranes bulged, were ruptured with a pickups and clear amniotic fluid was noted. The uterine incision was extended laterally with blunt finger fractionation. The infant's head was delivered atraumatically, followed by the remainder of the infant's body. The nose and mouth were suctioned with the bulb suction. The cord was doubly clamped and cut, and the was handed off the field to Megan MEAD for evaluation and resuscitation. See her note for details. The placenta was delivered spontaneously with umbilical cord traction and fundal massage. The uterus was cleared of all clots and debris. The uterine incision was reapproximated in a running locking fashion with a 0 chromic suture. A 2nd layer of the same suture was used to imbricate in horizontal fashion. One additional figure of X suture of 0 chromic was needed for hemostasis near the right lateral aspect of the hysterotomy closure. Jyoti was applied for additional hemostasis over the raw tissues. The gutters were cleared of clot. All instruments and retractors were removed. An additional omental adhesion on the right aspect of peritoneal opening was isolated, transected, and suture ligated. The anterior peritoneum was reapproximated in a running fashion with a 3-0 Vicryl suture. The subfascial tissues were carefully inspected and hemostasis assured. The fascia was reapproximated in a running fashion with a looped 0 Maxon suture. The subcutaneous tissues were copiously irrigated. Hemostasis was assured. The subcutaneous fat layer was reapproximated with interrupted sutures of 3-0 plain gut. The skin was closed in a subcuticular fashion with 4-0 Vicryl. Surgical glue and dressing were applied. A TAP block was administered by anesthesia. The patient tolerated the procedure well. Sponge, lap, needle, and instrument counts were reported as correct x2. The patient was taken to the recovery room, awake, and in stable condition. She did receive to grams of IV Ancef preoperatively and 30 mg IV Toradol at the conclusion of the procedure. Complications: None. Pathology: specimen obtained, sent to pathology (placenta) Surgery Debrief Performed: Yes Surgery Debrief Comment: Confirmed procedure, QBL, placenta to pathology and diagnosis. Condition: stable Disposition: floor
--- NOTE | 2024-06-21 09:38 | P.NB_ITS ---
Nerve Block Nerve Block Time Seen by Provider: 09:10 Date Seen: 06/21/24 Type of block requested by surgeon for post-operative analgesia: TAP Side: bilateral Time out performed: Yes Verification of patient name: Yes Verification of date of : Yes Site marking: site marked Name of person performing procedure: Dominic Estrada Continuous monitoring Was continuous monitoring of O2 sat, B/P, impact retail service merchandiser, recorded every 15 minutes?: Yes Procedure Checklist: sterile prep, needles and gloves Ultrasound guided. Images saved: Yes Medications given in 5ml increments after negative aspiration: Marcaine %: 0.25 mL: 30 Needle gauge: 20 and Exparel mL: 10 Needle gauge: 20 Patient tolerated procedure well: Yes Additional comments: Injected in 5 mL increments after negative aspiration Block Charges Block Charge (with Pro Fee): TAP Bilateral Use of Ultrasound Machine for Block: Yes- US Guidance/pain block
--- NOTE | 2024-06-21 09:40 | W.ANESCHARGE ---
Anesthesia Charges Start Date/Time Anesthesia Start Date: 06/21/24 Anesthesia Start Time: 07:25 Stop Date/Time Anesthesia Stop Date: 06/21/24 Anesthesia Stop Time: 09:31
--- NOTE | 2024-06-21 09:51 | W.ANESCHARGE ---
Anesthesia Charges Start Date/Time Anesthesia Start Date: 06/21/24 Anesthesia Start Time: 07:25 Stop Date/Time Anesthesia Stop Date: 06/21/24 Anesthesia Stop Time: 09:31
[2024-06-21] MEDS: ACETAMINOPHEN 500 MG TABLET 1000 MG PO ×2 (11:42→18:41)
[2024-06-21] MEDS: OXYCODONE 5 MG TABLET PO (13:18)
--- NOTE | 2024-06-21 14:29 | P.OBT_ITS ---
History of Present Illness History of Present Illness Time Seen by Provider: 14:29 Date Seen: 06/21/24 History of Present Illness: 33 year old on POD0 seen for assessment of safety for transfer. Patient is s/p repeat this morning at 37w0d GA performed at 37 weeks for severe growth restriction. Her case was complicated only by adhesive disease, QBL 252mL. Her was transferred shortly after delivery in the setting of CPAP requirements to [facility]. As such, Aurelio has requested a lateral transfer of care for her stay for proximity to baby. She was counseled that this may not be covered by her insurance company, who she called and they note it would be covered as this is within network for her and she still requires care (patient notes that she explicitly noted that this was not medically necessary). As such, I called [facility] and spoke with the OB on charge for unassigned patients with ticket taker Specialists, Dr. Castillo, who accepted the transfer. Patient is doing well in her immediate recovery period. She did receive 1 dose of 5 mg oxycodone for pain of 7/10, now this is improved. She has yet to ambulate, but feel her spinal is wearing off with time. Seated upright in bed. Morales catheter is in situ, adequate UOP. Scant appropriate postoperative vaginal bleeding. 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 Marital status: . Moravian/cultural needs: no. Chemical or radiation exposure: no. Pre- tobacco use: no. Pre- alcohol use: no. Current tobacco use: no. Current alcohol use: no. Recreational drug use: no. Dietary restrictions: No poor. Blood transfusion acceptable in an emergency: yes. PSYCHOSOCIAL HISTORY: History of depression or currently depressed: no. Current or past physical, emotional, or sexual mistreatment: no. Problems that will make it hard to make it to appointments: no. What is your current living situation?: I presently have a place to live Problems where you live: no known problems In the past 12 months, utilities in danger of being shut off: no In past 12 months, lack of transportation kept you from medical appts, meetings, work, or getting things needed for daily living: no In the past 12 mos, have been you worried that your food would run out before you had money to buy more?: never true In the past 12 mos, the food you bought just didn't last and you didn't have money to buy more?: never true Smoking Status: Never smoker Non-prescribed substance use: denies use How often does anyone, including family, friends and others, physically hurt you : never How often does anyone, including family, friends and others, insult or talk down to you: never How often does anyone, including family, friends and others, threaten you with harm: never How often does anyone, including family, friends and others, scream or curse at you: never Little interest or pleasure in doing things: not at all Feeling down, depressed, or hopeless: not at all History History 3 Elective abortions 0 Para 2 Spontaneous abortions 0 Hx # Term Pregnancies 2 Ectopic pregnancies 0 Hx # Pregnancies 0 Multiple births 0 Number of Living Children 2 Past Pregnancies Del. 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 Seated upright and hand pum ping in bed. Psych: Appropriate mood and affect Abdomen: Soft, minimal gaseous distension noted. Tender to palpation at utilize and fundus and lower quadrants, no rebound or guarding. Tenderness is appropriate with anticipated postoperative state. Fundus palpates at the umbilicus, firm. Pad inspection completed, small volume lochia noted with no vaginal bleeding expressed with fundal massage. Extremities: SCDs in place. Calves non-tender, no erythema. Mild bilateral edema. Results Labs Lab Assessment Start: 06/21/24 09:10 Freq: ONCE Status: Complete Protocol: PC.OBGBS Activity Type Activity Date Activity User E-sign Co-sign Detail Recorded Client Recorded Date Recorded By Document 06/21/24 14:05 [facility] Desktop 06/21/24 14:08 [facility] 06/21/24 14:05 Lab Assessment GBS Status negative GBS Additional Criteria None No Treatment Needed OK Are Labs Available Yes Maternal Blood Type B Maternal RH Factor Positive Evaluate Maternal Rubella Immune Status Immune Hepatitis B Surface Antigen Negative Maternal HIV Status Negative Maternal Syphillis (RPR) Status Negative Labs Laboratory Tests 06/21/24 Range/Units 06:35 Hgb 10.8 L (12.0-16.0) gm/dL RPR Screen Pending Blood Type B Positive Antibody Screen NEGATIVE Assessment and Plan Assessment and plan (1) care and examination of lactating mother: Status: Acute (2) delivery delivered: Status: Acute (3) affected by growth restriction: Status: Acute (4) Iron deficiency anemia: Status: Acute Plan Aurelio is a 33-year-old seen on postoperative day 0 from a repeat delivery. was complicated by severe growth restriction, iron deficiency anemia and subclinical hyperthyroidism. Her surgery was uncomplicated aside from adhesive disease, QBL 252. Baby was transferred shortly after delivery due to RDS with ongoing CPAP needs. Patient has requested a lateral transfer for her care for proximity to the . She was counseled that this may not be covered by her insurer, but no she covered them and they said this would be covered. As such, I called to initiate transfer of care to [facility] with Dr. Castillo as accepting physician. Patient is feeling well with no acute concerns. At present, her pain is well controlled and she is meeting appropriate postoperative milestones for her immediate course. VS WNL, UOP adequate. She has yet to ambulate, Morales catheter in situ. Small volume post-op lochia, benign abdominal exam. Plan to transfer care to [facility] by maternal request. Transportation via ground. Recommend routine 2 and 6 week visits, patient to call the clinic to coordinate this following her dismissal.
[2024-06-23 00:45] LABS: Rapid Plasma Reagin (RPR) Non Reactive (Non Reactive)
== END 2024-06-21 19:11 | disposition short-term general hospital (02) | DRG 788 ==
PROVIDERS: Admitting Provider Obstetrics & Gynecology; PCP Family Medicine; Visit Provider Obstetrics & Gynecology
PROC: 10D00Z1 Extraction of Products of Conception, Low, Open Approach (ICD-10-PCS; CPT 59514; principal; 2024-06-21 07:15)
DX: O34.211 Maternal care for low transverse scar from previous cesarean delivery (principal); O99.62 Diseases of the digestive system complicating childbirth; K66.0 Peritoneal adhesions (postprocedural) (postinfection); O36.5930 Maternal care for other known or suspected poor fetal growth, third trimester, not applicable or unspecified; G89.18 Other acute postprocedural pain; O99.02 Anemia complicating childbirth; D50.9 Iron deficiency anemia, unspecified; O99.284 Endocrine, nutritional and metabolic diseases complicating childbirth; E05.90 Thyrotoxicosis, unspecified without thyrotoxic crisis or storm; Z37.0 Single live birth; Z3A.37 37 weeks gestation of pregnancy
CPT/HCPCS: 01961; 36415; 64488; 76942; 85018; 86592; 86850; 86900; 86901; 88307; A9270; C9290; J0665; J0690; J1100; J1885; J2274; J2371; J2405; J2590; J3010; J7120

== ENCOUNTER 2024-06-21 19:03 | Outpatient (CLI) | payer MEDICAID, SELFPAY | END 2024-06-21 19:04 | disposition home or self-care (01) | LOC: AMB 06-24 03:48 | PROVIDERS: PCP Family Medicine; Visit Provider Emergency Medicine | DX: Z02.89 Encounter for other administrative examinations (principal) | CPT/HCPCS: A0425; A0428 ==

== ENCOUNTER 2024-08-15 14:07 | Outpatient (CLI) | payer MEDICAID, SELFPAY ==
[2024-08-18 15:07] LABS: HPV Source Cervical; HPV, High Risk by TMA Not Detected
== END 2024-08-15 14:08 | disposition home or self-care (01) ==
PROVIDERS: PCP Family Medicine; Visit Provider Advanced Practice Midwife
DX: Z12.4 Encounter for screening for malignant neoplasm of cervix (principal); Z39.2 Encounter for routine postpartum follow-up
CPT/HCPCS: 87624; 87625; 88141; 88142